=== PATIENT | male | born 1970 | race Two or more races ===

== ENCOUNTER 2020-01-25 11:30 | Outpatient (CLI) | payer OTHER | END 2020-01-25 15:20 | disposition home or self-care (01) | LOC: SONOGRAMA 11:30 | PROVIDERS: ATTEND Pathology Anatomic Pathology & Clinical Pathology | DX: E04.2 Nontoxic multinodular goiter (principal) ==

== ENCOUNTER 2020-06-02 08:33 | Outpatient (CLI) | payer OTHER | END 2020-06-02 08:37 | disposition home or self-care (01) | LOC: SONOGRAMA 08:33 | PROVIDERS: ATTEND Pathology Anatomic Pathology & Clinical Pathology | DX: E04.2 Nontoxic multinodular goiter (principal) ==